=== PATIENT | male | born 1975 | race Two or more races ===

== ENCOUNTER 2021-05-12 16:02 | Emergency (ER) | payer MEDICAID, OTHER ==
[~2021-05-12] VITALS: Ht 185.4 cm; Wt 99.8 kg
[2021-05-12 17:37] VITALS: BP 132/87
== END 2021-05-12 17:41 | disposition home or self-care (01) ==
LOC: ER 16:02
DX: F41.9 Anxiety disorder, unspecified (principal); I10 Essential (primary) hypertension; F17.210 Nicotine dependence, cigarettes, uncomplicated; Z76.0 Encounter for issue of repeat prescription